=== PATIENT | male | born 1995 | race Caucasian/White ===

== ENCOUNTER 2022-10-13 23:06 | Emergency (ER) | payer OTHER, SELFPAY ==
--- NOTE | ~2022-10-13 | XR_ITS ---
EXAMINATION: XR FINGER, RIGHT CLINICAL INFORMATION: Thumb laceration COMPARISON: None TECHNIQUE: Three views of the right thumb. FINDINGS: Osseous alignment is anatomic. No acute fracture is seen. A few tiny calcific densities are noted near the head of the proximal phalanx of the thumb, possibly tiny foreign bodies. XR/XR finger RT min 2V IMPRESSION: Few tiny calcific densities near the head of the proximal phalanx of the thumb, possibly tiny foreign bodies.
[2022-10-13 23:47] VITALS: BP 137/84; PULSE 80; RESP 16; TEMP 36.6; O2SAT 98; BMI 41.5
--- NOTE | 2022-10-14 01:15 | ED.EXTPRO ---
HPI - Extremity Problem General Chief complaint: Extremity Injury, Upper Stated complaint: Stitch Removal Time Seen by Provider: 10/14/22 00:10 History of Present Illness HPI Narrative: Patient right handed was using a cutting wheel at work. Suffer a laceration to the dorsum of the right thumb at the interdigit area. There is no difficulty with flexion extension of the thumb. No difficulty with opposition of the thumb. Patient is not on any blood thinners. Unsure about his tetanus status. Patient from home. Related Data Previous Rx's Medication Instructions Recorded cephalexin 500 mg capsule 500 mg PO TID #15 caps 10/14/22 Allergies Allergy/AdvReac Type Severity Reaction Status Date / Time No Known Allergies Allergy Verified 10/13/22 23:46 Review of Systems Review of Systems: No fever no chills no chest pain or shortness breath no systemic complaints Yes all other systems are reviewed and are negative [facility] Past Medical History Attestation statement: The following information was validated with the patient. Social History Social History Advance Directives: No Physical Exam Vital Signs: Vital Signs: Last Vital Signs Temp 97.8 F 10/13/22 23:47 Pulse 80 10/13/22 23:47 Resp 16 10/13/22 23:47 BP 137/84 10/13/22 23:47 Pulse Ox 98 10/13/22 23:47 O2 Del Method 10/13/22 23:47 BMI result Body Mass Index 41.5 Examination of the right hand showed a laceration at the dorsum of the interdigit area of the right thumb. Patient put food a full range of motion there was no tendon injury noted. Has full extension of the thumb at the interdigit joint. Opposition intact abduction adduction intact. Sensation distally intact. Capillary refill less than 2 seconds. Medical Decision Making Medical Decision Making MDM Narrative: X-ray was done to rule out foreign body. Rule out fracture. X-ray by my interpretation showed no fracture no foreign body. Patient has full range of motion. No tendon injury observed. The wound was cleaned copiously with normal saline after 1% lidocaine was used for anesthesia. The wound was subsequently closed. No complications. Will update patient's tetanus status as needed. Discharge patient home. Procedures Laceration Left thumb: Site: other (Dorsum of left thumb) Side (If applicable): left Size (cm): 3 Description: linear Depth: simple, single layer Local Anesthetic: lidocaine 1% Amount of anesthesia used (mL): 2 Pre-repair: wound explored, irrigated extensively and deep structures intact Skin layer closed with: nylon Size (cm): 5-0 Number of sutures: 3 Technique: simple, interrupted Discharge Plan Discharge Clinical Impression: Laceration of thumb Patient Disposition: Home, Self-Care Instructions: Finger Laceration (ED) Additional Instructions: Suture removal in 10-14 days Prescriptions: New cephalexin 500 mg capsule 500 mg PO TID Qty: 15 0RF
[2022-10-14] MEDS: Lidocaine HCl 1 % MPF 5 ML VIAL INFILTRATI (01:44)
[2022-10-14] MEDS: Diphth,Pertus(ACell),Tet Adult 0.5 ML SYRINGE IM (01:53)
== END 2022-10-14 01:59 | disposition home or self-care (01) ==
PROVIDERS: Emergency Provider Emergency Medicine Emergency Medical Services
DX: S61.012A Laceration without foreign body of left thumb without damage to nail, initial encounter (principal); S60.311A Abrasion of right thumb, initial encounter; M79.644 Pain in right finger(s); W26.9XXA Contact with unspecified sharp object(s), initial encounter; Y93.9 Activity, unspecified; Y92.9 Unspecified place or not applicable; Y99.0 Civilian activity done for income or pay; Z23 Encounter for immunization
CPT/HCPCS: 12042; 73140; 90471; 90715; 99282; 99284